=== PATIENT | female | born 1950 | race Caucasian/White ===

== ENCOUNTER 2024-08-15 09:33 | Observation (INO) ==
--- NOTE | 2024-07-18 13:57 | PAT Medication Instructions ---
Medication Instructions Date of Service July 18, 2024 Home Medications Medication Instructions Recorded Richy Crandall #1 ea 06/12/24 Vitamin D3 1 gummy PO QAM alprazolam 0.5 mg tablet 0.5 mg PO HS citalopram 40 mg tablet 40 mg PO HS cyanocobalamin (vitamin B-12) 1 tab PO QAM denosumab 60 mg/mL subcutaneous syringe (Prolia) 60 mg subcut UD ergocalciferol (vitamin D2) 1,250 mcg (50,000 unit) capsule (Vitamin D2) 1,250 mcg PO UD multivitamin 2 tab PO QAM ASK your prescriber and surgeon denosumab 60 mg/mL subcutaneous syringe (Prolia) 60 mg subcut UD DO NOT take the morning of surgery Vitamin D3 1 gummy PO QAM cyanocobalamin (vitamin B-12) 1 tab PO QAM ergocalciferol (vitamin D2) 1,250 mcg (50,000 unit) capsule (Vitamin D2) 1,250 mcg PO UD multivitamin 2 tab PO QAM Take evening before surgery alprazolam 0.5 mg tablet 0.5 mg PO HS citalopram 40 mg tablet 40 mg PO HS MORNING OF SURGERY: NOTHING TO EAT OR DRINK AFTER MIDNIGHT Other Notes If you have any questions please call us at [phone] or [phone] or [phone] or [phone]
--- NOTE | 2024-07-24 08:15 | Anesthesiology Consultation ---
Date of Service July 24, 2024 Assessment & Plan (1) Encounter for pre-operative examination: - Infectious disease screening: Per assessment on 07/24/24- No known recent infectious disease contacts or current infectious disease symptoms. - Outpatient joint assessment: Pt currently scheduled for inpatient pathway. If surgeon requests review for outpatient joint pathway, patient is an acceptable candidate for outpatient joint program from anesthesia standpoint pending surgeon's office assessment that patient is motivated, has good support and completes [facility] preop requirements. - Hx PONV: Anxious regarding waking up with PONV. Requesting "not to wake up with nausea" Chart Review Chart Review: Acceptable Risk for Surgery and Patient seen in Pre Admission Testing Teaching & Discussion Pre-Anesthesia Teaching/Discussion Notes: Instructed NPO after midnight before surgery,except medications with 15 cc of water. Medication instructions provided according to the PAT guidelines. History Surgery Operation Date: 08/15/24 10:40 Proposed Procedures p Right Total Knee Arthroplasty - Ruiz Helton MD Height/Weight Height: 5 ft Weight: 66.2 kg Allergies Allergy/AdvReac Type Severity Reaction Status Date / Time No Known Allergies Allergy Verified 07/11/24 07:33 Medications Home Medications Medication Instructions Recorded Confirmed Last Taken Wheeled Walker #1 ea 06/12/24 06/12/24 Unknown Vitamin D3 1 gummy PO QAM 07/11/24 07/11/24 Unknown alprazolam 0.5 mg tablet 0.5 mg PO HS 07/11/24 07/11/24 Unknown citalopram 40 mg tablet 40 mg PO HS 07/11/24 07/11/24 Unknown cyanocobalamin (vitamin B-12) 1 tab PO QA 07/11/24 07/11/24 Unknown denosumab 60 mg/mL subcutaneous 60 mg subcut UD 07/11/24 07/11/24 Unknown syringe (Prolia) ergocalciferol (vitamin D2) 1,250 1,250 mcg PO UD 07/11/24 07/11/24 Unknown mcg (50,000 unit) capsule (Vitamin D2) multivitamin 2 tab PO QAM 07/11/24 07/11/24 Unknown Past Medical History Medical History Anxiety Right knee DJD Exercise / Class Metabolic Activity II 4-5 Yardwork/Stairs/Walk up hill (one FS: No CP, no SOB) Past Surgical History Surgical History History of total left knee replacement Hx of colonoscopy ~ Hx of total hysterectomy with removal of both tubes and ovaries Nausea and vomiting after administration of anesthetic agent Past Anesthesia History No Hx of Anesthesia Complications and No Family Hx of Anesthesia Complications History of PONV No Hx of Motion Sickness and History of PONV Social History Smoking Status: Never smoker Do You Dip or Chew Tobacco: No Hx Alcohol Use: Yes alcohol intake frequency: holidays/special occasions only Hx Substance Use: No substance use type: does not use Review of Systems Patient denies chest pain, shortness of breath, dyspnea on exertion, fever, chills, cough, wheezing, palpitations. Physical Exam Vital Signs BP 118/76 P 73 TEMP 98.2 SP02 96%RA RESP 16 Physical Mildly decreased cervical extension range of motion. Full TMJ range of motion. TMD > 3.5 finger breaths Mallampati Score II Dentition: upper partials Lungs: clear throughout to auscultation Cardiac: regular rate and rhythm, no murmurs noted Spine: normal Carotid arteries: negative bruit Extremities: no LE edema Short neck Lab Results Anesthesia Preop Results Results Anesthesia Widget: WBC 6.60 K/ul (4.8-10.8) 07/24/24 Hgb 13.6 g/dl (12.0-16.0) 07/24/24 Hct 40.7 % (37.0-47.0) 07/24/24 Plt 333 K/uL (130-400) 07/24/24 Na 139 mmol/L (136-145) 07/24/24 K 3.9 mmol/L (3.5-5.1) 07/24/24 Cl 106 mmol/L (98-107) 07/24/24 CO2 27 mmol/L (21-32) 07/24/24 BUN 16 mg/dl (6-23) 07/24/24 Creat 0.78 mg/dl (0.6-1.2) 07/24/24 Glucose Level 76 mg/dl (70-99(Fasting)) 07/24/24 PT 10.7 Seconds (9.0-12.0) 07/24/24 PTT 26 Seconds (21-31) 07/24/24 INR 1.0 (0.9-1.1) 07/24/24 Blood Type A Positive 07/24/24 Antibody Screen NEGATIVE 07/24/24 Testing Electrocardiogram Date: 07/24/24 NSR at 70bpm. "Normal ECG" Chest X-Ray Date: 07/24/24 FINDINGS: 2 views of the chest demonstrate no acute cardiopulmonary process. No infiltrate or pleural effusion. The heart and pulmonary vascularity are unremarkable IMPRESSION: No acute process
--- NOTE | 2024-08-11 07:35 | History & Physical Report ---
Date of Service August 11, 2024 Assessment & Plan (1) Right knee DJD: 74-year-old female with history of left knee replacement done elsewhere in the past with advanced right knee DJD. She has failed conservative treatment. She like to proceed with right knee replacement. Plan: We are going to take her to the operating room and do a right total knee replacement. The risks Mente this procedure explained and she understands. Informed consent was obtained. She is planned to be discharged to home with [facility]. Will plan on DVT prophylaxis including thigh-high teds, SCDs, aspirin twice a day. She has had issues with nausea in the past and will be aggressive as far as trying to manage her nausea with Zofran and Decadron. (2) History of total left knee replacement: History of Present Illness Chief Complaint: . Right knee pain. Primary Care Provider: NO PCP . Patient is a 74-year-old female from [place] who presents [facility] for surgical treatment of her right knee. She has a long history of knee problems had her left knee replaced in [place] at [facility] about 6 or 7 years ago. She done pretty well from this. Over the past several years she developed increased pain discomfort and limited mobility due to right knee pain. It is global pain. The more she is up and on her leg and more it hurts. She limps all the time but more as the day goes on. She has had little response to her medicines. She has not done well with injections in the past. She just like to get her knee fixed. Allergies Allergy/AdvReac Type Severity Reaction Status Date / Time No Known Allergies Allergy Verified 07/11/24 07:33 Home Medications Medication Instructions Recorded Confirmed Type Wheeled Walker #1 ea 06/12/24 06/12/24 Rx Vitamin D3 1 gummy PO QAM 07/11/24 07/11/24 History alprazolam 0.5 mg tablet 0.5 mg PO HS 07/11/24 07/11/24 History citalopram 40 mg tablet 40 mg PO HS 07/11/24 07/11/24 History cyanocobalamin (vitamin B-12) 1 tab PO QAM 07/11/24 07/11/24 History denosumab 60 mg/mL subcutaneous 60 mg subcut UD 01/14/25 01/14/25 History syringe (Prolia) ergocalciferol (vitamin D2) 1,250 1,250 mcg PO UD 07/11/24 07/11/24 History mcg (50,000 unit) capsule (Vitamin D2) multivitamin 2 tab PO QAM 07/11/24 07/11/24 History Past Med/Surg History Problem List Encounter for pre-operative examination Medical History Anxiety Right knee DJD Surgical History Nausea and vomiting after administration of anesthetic agent History of total left knee replacement Hx of colonoscopy ~ Hx of total hysterectomy with removal of both tubes and ovaries Social History Smoking Status: Never smoker Second Hand Exposure: No; Do You Dip or Chew Tobacco: No; Hx Alcohol Use: Yes Hx Substance Use: No Preferred Language: Czech Communication Ability: Effective 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 Physical Exam . Physical examination was a pleasant healthy female. Examination of both [id number] patient ambulates independently. Examination of the right knee reveals a varus alignment to her knee. She is tender with medial joint line. When she weightbears she does have a bit of a varus thrust. She is neurologically intact. Range of motion is about 5-1 20. Examination of the left knee reveals well-healed incision. No skin swelling. No instability. Range of motion 0-1 20. She is neurologically intact. Constitutional WD/WN, vitals as above Respiratory normal respiratory effort, lungs clear to auscultation Cardiovascular RRR, no murmur, no edema Gastrointestinal (Abdomen) normal bowel sounds, soft, nontender, no hepatosplenomegaly Results & Data Results & Data Laboratory Results . Diagnostic Findings . X-ray of the right knee reviewed. Shows advanced right knee DJD. She has complete loss of medial joint space. There is got some bone destruction medially of the tibia. A little bit of tibiofemoral subluxation. The left knee replacement looks to be in good position without problems. PG Care Time/CCT Total # of Minutes Spent Total Time Spent with Patient: Total time spent is greater than 50% in coordination of care (as documented) at patient's floor/unit and/or counseling patient: Coding Level of Care Code None Diagnoses Right knee DJD M17.11 History of total left knee replacement Z96.652
[~2024-08-15 09:33] MED LIST: ROPIVACAINE 0.5% 5 MG/ML 30 ML VIAL ONE
[2024-08-15] MEDS: CeleBREX 200 MG CAP PO SCH (10:10)
[2024-08-15] MEDS: FAMOTIDINE 20 MG TAB PO SCH (10:10)
[2024-08-15] MEDS: dexAMETHasone**PF** 10 MG/ML VIAL IV SCH (10:10)
[2024-08-15] MEDS: LR 60ML/HR IV SCH (10:10)
[2024-08-15] MEDS: METOCLOPRAMIDE HCL 10 MG TABLET PO SCH (10:10)
[2024-08-15] MEDS: ACETAMINOPHEN 500 MG TAB PO SCH ×2 (10:10→21:07)
[2024-08-15] MEDS: LR 500ML BOLUS, THEN 15ML/HR IV SCH (10:25)
--- NOTE | 2024-08-15 11:05 | History & Physical Bridge Note ---
Date of Service August 15, 2024 History & Physical Bridge Note I have examined the patient, reviewed the History & Physical and in the interval since the performance of the History & Physical I have noted the following changes of clinical significance: no changes noted
[2024-08-15] MEDS ORDERED: fentaNYL citrate PF 100 MCG/2 ML VIAL IV PRN (12:23)
[2024-08-15] MEDS ORDERED: ATROPINE SULFATE 0.1 MG/ML 10ML SYR IV PRN (12:23)
[2024-08-15] MEDS ORDERED: ONDANSETRON INJ 2 MG/ML 2 ML VIAL IV PRN ×2 (12:23→16:04)
[2024-08-15] MEDS ORDERED: HYDROmorphone INJ 1 MG/ML SYRINGE IV PRN (12:23)
[2024-08-15] MEDS ORDERED: ePHEDrine sulfate 50 MG/ML AMP IV PRN (12:23)
[2024-08-15] MEDS ORDERED: PROPOFOL IV EMULSION 10 MG/ML 20 ML VIAL IV ONE ×2 (12:36→12:37)
[2024-08-15] MEDS ORDERED: LIDOCAINE 2% 2 ML VIAL/AMP(20MG/ML) INFIL ONE (12:38)
[2024-08-15] MEDS ORDERED: GLYCOPYRROLATE 0.2 MG/ML VIAL ONE (12:38)
[2024-08-15] MEDS ORDERED: ONDANSETRON INJ 2 MG/ML 2 ML VIAL ONE (12:38)
[2024-08-15] MEDS ORDERED: MIDAZOLAM HCL 1 MG/ML 2ML VIAL ONE (12:40)
[2024-08-15] MEDS: ceFAZolin 2000MG 2,000 MG/15 ML SYR IV SCH (13:05)
[2024-08-15] MEDS: ROPIV 0.5% 246mg, Ketorolac 30mg, EPINEPHrine 0.5mg in NSS INFIL SCH (13:44)
[2024-08-15] MEDS: ORTHO JOINT ANESTHETIC ONE (13:45)
[2024-08-15] MEDS: TRANEXAMIC ACID 1,000 MG **IV Intra-op IV SCH (13:53)
--- NOTE | 2024-08-15 14:53 | Operative Report ---
PG Post Operative Report Pre & Post Diagnosis Operation Date: 08/15/24 12:30 Pre-Op Diagnosis: Right Knee Osteoarthritis Post-Op Diagnosis: Right Knee Osteoarthritis I identified the patient and participated in the time-out.: Yes Procedure Operation Date: 08/15/24 12:30 Actual Procedures p Right Total Knee Arthroplasty, Cemented(Right) - Ruiz Helton MD Surgeon Ruiz Helton MD Sales Representative [employer] Dakota Ireland PA-C Estimated Blood Loss 50 Findings Consistent with Post-Op Diagnosis Operative findings were advanced severe right knee DJD with grade 4 disease primarily in the medial and patellofemoral compartments. Diffuse osteopenia. Osteophytes in all 3 compartments. Specimens Right knee sent for pathology. Anesthesia Type Spinal MAC Complications none Disposition Accompanied Patient To Recovery: No Indications Patient is a 74-year-old female with a long several history of progressive increasing right knee pain discomfort and stiffness. She had her left knee replaced about 8 years ago and is done well from this. That she failed conservative measures. X-rays show advanced right knee DJD. She elected proceed with total knee arthroplasty. Description of Procedure Operative implants consist of: 1. Biomet Vanguard size 57.5 right posterior Byce femoral component. 2. Biomet size 63 tibial tray. 3. 10 mm posterior stabilized polyethylene insert. 4. 31 x 8 all poly patella. The patient was taken to the op room, identified, placed on the operating table in the supine position. All conductors were appropriately padded. IV antibiotics fibra anesthesia team. A spinal anesthetic and adductor canal block had been Weida in the holding area. Alves catheter was placed in sterile fashion. Right Tetrick was then placed. The right lower extremity was then prepped and draped in usual sterile fashion. The right leg was elevated and exsanguinated with use of an Esmarch and a turn was placed at 300 mmHg. An anterior approach to the right knee was then performed to longitudinal incision centered over the patella. Sharp dissection was got through subcutaneous tissue down the extensor mechanism. A medial parapatellar arthrotomy incision was made. Some subperiosteal dissection was carried out medially. The fat pad was dissected from Neath patella tendon. The lateral patellofemoral ligament was released. Patella subluxate laterally and the knee was flexed. The osteophytes taken off distal femur. The ACL and PCL were then released from distal femur and the tibia subluxated anteriorly. The external tibial alignment jig was then placed on the anterior face the tibia and adjusted 12 mm medially. The proximal tibial cut was made remove out of millimeter bone for the most efficient aspect medial tibial plateau. The tibia sized to a size 63. Attention drawn the femur. Distal femur then with a sharp drill. Intramedullary canal was suction. A right 5 degree valgus cutting guide was placed. The distal femoral cutting block was pinned in place. Distal femoral cut was made to take an additional 3 mm of bone off distal femur. The femur was then sized to a size 57.5. The AP cutting block was pinned parallel to the epicondylar axis which was 3 degrees of external rotation. The anterior cut, anterior chamfer, posterior cut, posterior chamfer cuts were made. The box cutting guide was placed and just slight later al box cut was made. The knee was flexed. The remnants of the medial and lateral menisci were excised. The osteophytes taken off the posterior aspect the femur. A trial femoral component was placed. Tibial tray was pinned in Aniyah external rotation and the drill and stem punch use great defect in proximal tibia for the tibial tray. The knee was then trialed and the 10 mm insert fit most appropriately. Attention drawn the patella. The patella was cleaned of all soft tissues. Patella thickness measured about 19 mm in thickness was cut down to 12. Was sized to a size 31 patella. The lug holes were drilled for 31 patella. The lateral osteophytes removed. Patella button was placed. Knee was taken through range of motion patella tracked nicely with no thumbs test. Attention drawn toward placement permanent components. Nupathe all trial components were removed. Bone plug was placed into this femur limit blood loss. Double batch Palacos G cement was mixed. A Biomet Vanguard size 57.5 right posterior stabilized femoral component, size 63 tibial tray, 10 mm posterior Byce polyethylene insert, and a 31 x 8 all poly patella were then placed and cemented into place. The knee was brought out into full extension until the cement hardened. Final cement check was then performed. The pericapsular tissues were injected with a total of 100 cc of Ortho mix. Patient did receive 1 g of tranexamic acid. The tourniquet was then let down for final tourniquet time of 53 minutes. Hemostasis surgeries electrocautery. Extensor Meclomen closed with combination 1 PDS suture #1 V icryl suture in a [id number] fashion. Extensor Meclomen checked found be intact with subcutaneous tissue then closed with 2 Dexon suture in buried erupted fashion and the skin was closed skin johnathon. Leg was then cleaned and dried and sterile dressing with Xeroform, 4 fours, sterile cast padding, Apolinar bandage were applied. Patient then transferred to the recovery room in stable condition. Patient tolerated procedure well and there were no complications. Dakota Ireland, my physician reading assistant, was present for the entire procedure. His assistance was essential and required for appropriate patient positioning, prepping and draping, surgical exposure, performing the technical details of the operation, placement the implants, closure of the wound, and placement of the sterile bandage. I attest to the content of the Intraoperative Record and any orders documented therein. Any exceptions are noted below.
--- NOTE | 2024-08-15 15:18 | Anesthesiology Progress Note ---
Date of Service August 15, 2024 Anesthesia Post Procedure Vital Signs Vital Signs: Temp Pulse Pulse Resp BP Pulse Ox O2 Del Method 08/15/24 15:15 36.4 C L 99 H 16 114/68 95 Room Air 08/15/24 15:05 103 H 14 123/61 95 Room Air 08/15/24 14:55 105 H 16 110/65 95 Room Air 08/15/24 14:49 36.5 C 104 H 16 124/63 95 Room Air 08/15/24 10:03 36.5 C 69 18 144/79 H 95 Room Air Pain Intensity Right Knee: Pain Intensity: 7 Transfer of Care Handoff Completed per policy Notes Mental Status: alert / awake / arousable and participated in evaluation Patient Amnestic to Procedure: Yes Nausea / Vomiting: adequately controlled Pain: adequately controlled Airway Patency, RR, SpO2: stable & adequate BP & HR: stable & adequate Hydration State: stable & adequate Anesthetic Complications: no major complications apparent and Pt Satisfied with anesthetic care
--- NOTE | 2024-08-15 15:48 | XRay Report ---
XR knee RT 1 or 2V routine CLINICAL HISTORY: Surgical Post Op COMPARISON: None pertinent FINDINGS: 3 postop views of the right knee demonstrate a total knee replacement with satisfactory po sitioning and alignment of the prosthetic components. Postsurgical changes are noted. IMPRESSION: As above ACT 112: Negative or not required by law. Electronically signed by: Yvette Montoya M.D. 08/15/2024 3:47 PM
[2024-08-15] MEDS ORDERED: ALUMINUM/MAGNESIUM SUSP 30 ML UDC PO PRN (16:04)
[2024-08-15] MEDS ORDERED: bisacodyL 10 MG SUPP PR PRN (16:04)
[2024-08-15] MEDS ORDERED: MAGNESIUM HYDROXIDE SUSP 30 ML UDC PO PRN (16:04)
[2024-08-15] MEDS ORDERED: NALOXONE HCL 0.4 MG/1 ML VIAL/CARP IV PRN (16:04)
[2024-08-15] MEDS ORDERED: NON-FORMULARY MEDICATION (Denosumab [Prolia] 60 mg/mL Syringe) SQ SCH (16:04)
[2024-08-15] MEDS ORDERED: traMADol HCL 50 MG TABLET PO PRN (16:04)
[2024-08-15] MEDS ORDERED: METOCLOPRAMIDE HCL INJ 5 MG/ML 2 ML VIAL IV PRN (16:04)
[2024-08-15] MEDS: KETOROLAC TROMETHAMINE 15 MG/ML VIAL IV SCH (18:40)
[2024-08-15] MEDS: ASCORBIC ACID 500 MG TAB PO SCH (18:53)
[2024-08-15] MEDS ORDERED: SENNA 8.6 MG TAB PO SCH (21:00)
[2024-08-15] MEDS: CITALOPRAM 40 MG TAB PO SCH (21:07)
[2024-08-15] MEDS: ALPRAZolam 0.5 MG TABLET PO SCH (21:07)
[2024-08-15] MEDS: DOCUSATE SODIUM 100 MG CAP PO SCH (21:07)
[2024-08-15] MEDS: ASPIRIN 81 MG ECTAB PO SCH (21:07)
[2024-08-15] MEDS: SENNA 8.6 MG TAB PO SCH (21:07)
[2024-08-15] MEDS: ceFAZolin 1000MG 1,000 MG/7.5 ML SYR IV SCH (21:59)
[2024-08-15] MEDS: TRANEXAMIC ACID / 0.7% NACL 1,000 MG/100 ML BAG IV SCH (21:59)
[2024-08-16] MEDS: HYDROmorphone INJ 0.5 MG/0.5 ML SYR IV PRN (01:49)
[2024-08-16 07:09] VITALS: RESP 18; TEMP 98.2; O2SAT 96
[2024-08-16 07:52] LABS: Hematocrit (blood only) 34.4 % (37.0-47.0); Hemoglobin 11.4 g/dl (12.0-16.0); Mean Corpuscular Hemoglobin 29.8 pg (25.0-34.0); Mean Corpuscular Hgb Conc 33.1 g/dL (32.0-36.0); Mean Corpuscular Volume 90.1 fL (80.0-100.0); Mean Platelet Volume 10.4 fL (9.4-12.4); Platelet Count 295 K/uL (130-400); RDW Coefficient of Variation 13.8 % (11.5-14.5); RDW Standard Deviation 45.4 fL (36.4-46.3); Red Blood Count 3.82 M/uL (4.20-5.40); White Blood Count 17.21 K/ul (4.8-10.8)
[2024-08-16 08:12] LABS: BUN Creatinine Ratio 20.2 (10-20); Calcium 8.9 mg/dl (8.6-10.3); Creatinine Clr Calc Pharmacy 44.2 ml/min; Potassium 4.4 mmol/L (3.5-5.1)
[2024-08-16] MEDS: MULTIVITAMIN TAB PO SCH (08:19)
[2024-08-16] MEDS: CYANOCOBALAMIN (B-12) 500 MCG TABLET PO SCH (08:19)
[2024-08-16] MEDS: CHOLECALCIFEROL 10 MCG (400 UNITS) TAB PO SCH (08:19)
[2024-08-16] MEDS: dexAMETHasone 10 MG in SYRINGE 0 ML IV SCH (08:20)
[2024-08-16] MEDS ORDERED: NON-FORMULARY MEDICATION (Multivitamin Tablet) PO SCH (09:00)
[2024-08-16 10:45] VITALS: BP 104/66; PULSE 83
[2024-08-16] MEDS ORDERED: MIDAZOLAM HCL 1 MG/ML 2ML VIAL IV ONE (11:02)
--- NOTE | 2024-08-16 12:58 | Orthopedic Progress Note ---
Date of Service August 16, 2024 Assessment & Plan (1) Status post total right knee replacement: (2) Aftercare following knee joint replacement surgery: Plan 74-year-old woman POD# 1 s/p right total knee replacement, doing well overall. Pain is well-controlled. Medically stable. Postop x-rays well-appearing. She is neurologically intact. Plan: 1. DVT prophylaxis w/ TEDs, SCDs, ASA 81 mg BID. 2. PT/OT as tolerated. WBAT on the R LE. Encourage heel slides, SLR, full knee extension w/ quad sets. 3. Pain control doing well with current pain regimen. 4. Dressing change POD#2 per discharge instructions. 5. Disposition - plan to D/C home w/ home health later today once cleared by PT/OT. 6. F/u 2 weeks post-op w/ orthopedics (Dr. Helton's team), or as previously scheduled, for first post-op visit. Subjective Patient is POD# 1 s/p right total knee arthroplasty by Dr. Helton on 08/15/2024. Patient says her pain is well-controlled this morning. Denies CP, SOB, N/V, R LE paresthesia. She has home health care arranged to come to the house for therapy. Patient says that she will be ready to go home today. Review of Systems All systems reviewed & are unremarkable except as noted in HPI & below. Physical Exam GENERAL: AA&Ox3, NAD. Pleasant, affect is calm. Sitting in bed and appears comfortable. RESPIRATORY: Normal respiratory effort with no signs of distress. CHEST/AXILLA: Chest movement symmetrical. No deformities noted. CARDIOVASCULAR: No edema noted. SKIN: [place], warm and dry. MS/EXTREMITY: Knee dressing & EMMA wrap c/d/i. KILEY hose donned to contralateral LE. + ankle dorsi/plantarflexion. NVI distally. Calf soft/NT. PT/DP pulses intact, 2+. Results & Data Results & Data Laboratory Results . Laboratory Results - last 24 hr 08/16/24 07:29 WBC 17.21 H RBC 3.82 L Hgb 11.4 L Hct 34.4 L MCV 90.1 MCH 29.8 MCHC 33.1 RDW Std Deviation 45.4 RDW Coeff of Sammi 13.8 Plt Count 295 MPV 10.4 Sodium 137 Potassium 4.4 Chloride 104 Carbon Dioxide 29 Anion Gap 4 BUN 19 Creatinine 0.94 Est Cr Clr Drug Dosing 44.2 eGFR 63.67 BUN/Creatinine Ratio 20.2 H Glucose 103 H Calcium 8.9 Diagnostic Findings . Knee X-Ray 08/15/24 14:47 XR knee RT 1 or 2V routine CLINICAL HISTORY: Surgical Post Op COMPARISON: None pertinent FINDINGS: 3 postop views of the right knee demonstrate a total knee replacement with satisfactory positioning and alignment of the prosthetic components. Postsurgical changes are noted. IMPRESSION: As above ACT 112: Negative or not required by law. Electronically signed by: Yvette Montoya M.D. 08/15/2024 3:47 PM PG Care Time/CCT Total # of Minutes Spent Total Time Spent with Patient: Total time spent is greater than 50% in coordination of care (as documented) at patient's floor/unit and/or counseling patient: [place] [address] SUB INP/OBS CARE 07/22MIN Patient Type Established History Problem Focused Exam Problem Focused Medical Decision Making Straight Forward Diagnoses Status post total right knee replacement Z96.651 Aftercare following knee joint replacement surgery Z47.1; Z96.659
--- NOTE | 2024-08-16 15:20 | Discharge Summary ---
Date of Service August 16, 2024 Admission HPI (Per Admitting) . Patient is a 74-year-old female from [place] who presents specifically for surgical treatment of her right knee. She has a long history of knee problems had her left knee replaced in [place] at [facility] about 6 or 7 years ago. She done pretty well from this. Over the past several years she developed increased pain discomfort and limited mobility due to right knee pain. It is global pain. The more she is up and on her leg and more it hurts. She limps all the time but more as the day goes on. She has had little response to her medicines. She has not done well with injections in the past. She just like to get her knee fixed. Admission Exam (Per Admitting) . Physical examination was a pleasant healthy female. Examination of both [id number] patient ambulates independently. Examination of the right knee reveals a varus alignment to her knee. She is tender with medial joint line. When she weightbears she does have a bit of a varus thrust. She is neurologically intact. Range of motion is about 5-1 20. Examination of the left knee reveals well-healed incision. No skin swelling. No instability. Range of motion 0-1 20. She is neurologically intact. Constitutional WD/WN, vitals as above Respiratory normal respiratory effort, lungs clear to auscultation Cardiovascular RRR, no murmur, no edema Gastrointestinal (Abdomen) normal bowel sounds, soft, nontender, no hepatosplenomegaly Diagnostic Findings . X-ray of the right knee reviewed. Shows advanced right knee DJD. She has complete loss of medial joint space. There is got some bone destruction medially of the tibia. A little bit of tibiofemoral subluxation. The left knee replacement looks to be in good position without problems. Principal Diagnosis Same as "Discharge Diagnosis" noted below under Discharge Instructions. Discharge Exam GENERAL: AA&Ox3, NAD. Pleasant, affect is calm. Sitting in bed and appears comfortable. RESPIRATORY: Normal respiratory effort with no signs of distress. CHEST/AXILLA: Chest movement symmetrical. No deformities noted. CARDIOVASCULAR: No edema noted. SKIN: [place], warm and dry. MS/EXTREMITY: Knee dressing & EMMA wrap c/d/i. KILEY hose donned to contralateral LE. + ankle dorsi/plantarflexion. NVI distally. Calf soft/NT. PT/DP pulses intact, 2+. Discharge Data Procedures Performed Operation Date: 08/15/24 12:30 Actual Procedures p Right Total Knee Arthroplasty, Cemented(Right) - Ruiz Helton MD Ordered Studies 08/15/24 05:00 US - OR guided needle placemen Routine Hospital Course (1) Aftercare following knee joint replacement surgery: (2) Status post total right knee replacement: Plan On August 15, 2024 Yessenia arrived at [facility] operating room and underwent a right total knee replacement without complications. Patient had a an adductor canal block and spinal anesthetic for the procedure. Postoperatively, patient was transferred to the general orthopedic floor in stable condition and eventually started onto aspirin 81 mg twice daily for DVT prophylaxis as appropriate. Patient's hospital course was uneventful. On postoperative day #1, patient's vital signs were stable and pain was well- controlled. Patient was able to participate well with physical therapy, safely performing the necessary ambulation and range of motion exercises and properly demonstrating ADL tasks. Patient was then discharged home in stable condition, with home health care ([facility]) services to begin. Patient will follow-up with orthopedics in 2 to 3 weeks for postoperative care. PG Care Time/CCT Total # of Minutes Spent Total Time Spent with Patient: Total time spent is greater than 50% in coordination of care (as documented) at patient's floor/unit and/or counseling patient: Discharge Plan Discharge Items Patient Disposition: Home - Home Health Services Reason For Visit: Right Knee Osteoarthritis Discharge Diagnosis: Right Knee Replacement Activity: Per Instructions section Weightbearing: Full weightbearing Non-emergency contact: Surgeon Call non-emergency contact if: you have any medication questions Follow-up/Referrals: PCP,NO [Primary Care Provider] - Addtl Attending Provider Instructions: ACTIVITY RECOMMENDATIONS: Diet: * You may resume previous diet. Physical Therapy: * You will go to physical therapy three times each week for four to six weeks after your surgery in order to regain your knee range of motion and to retrain your knee to work properly. * It is just as important to make sure you are getting your knee perfectly straight as it is to regain your knee bend. * Taking a pain pill an hour before therapy can help you have a more productive and comfortable therapy session. Home Exercise: * You were shown a series of exercises (heel props, heel slides, etc.) in the hospital. Do these exercises three to four times each day including the exercises you were shown in physical therapy. Walking: * Get up and walk several times each day. For the first four weeks, try not to stand or walk for more than one hour at a time. If you do stand or walk for more than one hour, you will not hurt anything, but your knee and leg will likely swell. * As you feel comfortable, you may change from the walker or crutches to a cane and then to independent walking. MEDICATIONS: New Medicine: * You will likely be taking one or more of these medications: 1. Tramadol - A quick and shorter-acting pain medication. Take one to two tablets every six hours to lessen your pain. 2. Aspirin - Thins your blood to lessen the chance of forming a blood clot. * The most common side effects of pain medicine and iron are nausea and constipation. If nausea or constipation is too much of a problem or if you have any questions about your new medicines or doses, call [facility] at . We will try to help you manage these issues. "VERY IMPORTANT TO READ AND REVIEW" Pain: * The immediate post-operative period after knee replacement surgery is often quite painful. * You are given a prescription for pain medicine. You should take it, as directed, when you need it, especially before physical therapy and before going to bed. Pain that interferes with sleep is very common and can last several months. * You will likely need pain medicine for the first four to six weeks. It will not stop all of the pain. The pain will lessen and as you feel better, you may change to milder pain medicine such as Tylenol. * The most common side effects of pain medicine are nausea and constipation, so don't take more than you need. SPECIAL CARE INSTRUCTIONS: TEDs/Elastic Stockings: * The white elastic stockings help limit swelling and prevent blood clots from forming in your legs. The more you wear them, the more they work. * Wear them for six weeks after knee replacement surgery and four weeks after partial knee replacement. Incision Site Care: * Remove dressing postoperative day 2 and then shower. Keep direct shower pressure off the incision site. * After showering, cover johnathon with dry gauze and change daily or more frequently if the dressing is getting saturated with drainage. * Use the KILEY stockings to hold dressing in place. DO NOT apply tape on the skin. * May completely stop using bandage if wound is dry and no drainage * Johnathon are removed between 2 and 3 weeks post-op. If your follow-up appointment is made before 2 weeks, please have your appointment re- scheduled. It is too early to remove the johnathon. Prevention of Infection: * Take antibiotics one hour before any dental cleaning, dental work, urological procedure, gastrointestinal procedure or any invasive surgery in order to prevent your new joint from getting infected. * You may get the antibiotics from the doctor performing the procedure or you may call our office at [phone] before and we will call in a prescription to the pharmacy of your choice. Things to Watch For: * Drainage from the incision site that occurs more than one week after your surgery. * Severely increased knee/leg pain or swelling. * Increased redness at the incision site. * Fever above 102 degrees Fahrenheit. * Unusual chest pain or shortness of breath. * Unusual pain or burning with urination. Call [facility] at [phone] with any of the above problems or if you have any questions about your medicines or recovery. FOLLOW UP VISIT: Make an appointment to see your doctor for approximately two weeks after surgery for a progress check and staple removal by calling the office at [phone]. Pending Studies at Discharge: No Stand-Alone Forms: My [facility], Smoking Cessation Medications and DC Order Prescriptions: Continued tramadol 50 mg tablet 50 - 100 mg PO Q6 PRN (Reason: pain) Qty: 40 0RF Rx Instructions: Take as needed for pain ondansetron 4 mg tablet,disintegrating 4 mg PO Q8 PRN (Reason: nausea) Qty: 20 1RF Rx Instructions: Take as needed for nausea ketorolac 10 mg tablet 10 mg PO Q6 5 Days Qty: 20 0RF Rx Instructions: Take 4 times per day with food for 5 days to lessen pain and swelling. sennosides [Senokot] 8.6 mg tablet 8.6 mg PO BID 14 Days Qty: 28 0RF Rx Instructions: Take two times a day to prevent/treat constipation acetaminophen [Tylenol Extra Strength] 500 mg tablet 1,000 mg PO TID 30 Days Qty: 180 0RF Rx Instructions: Take 3 times per day to lessen pain. aspirin [Ирина Low Dose Aspirin] 81 mg tablet,delayed release (DR/EC) 81 mg PO BID 45 Days Qty: 90 0RF Rx Instructions: Take to prevent blood clots. cefadroxil 500 mg capsule 500 mg PO BID 7 Days Qty: 14 0RF Rx Instructions: Take 1 cap twice a day to prevent infection (DME) Wheeled Walker Misc See Rx Instructions .MEDSUPPLY Qty: 1 0RF Rx Instructions: As directed multivitamin Tablet 2 tab PO QAM citalopram 40 mg tablet 40 mg PO HS alprazolam 0.5 mg tablet 0.5 mg PO HS ergocalciferol (vitamin D2) [Vitamin D2] 1,250 mcg (50,000 unit) Capsule 1,250 mcg PO UD Rx Instructions: every other week cyanocobalamin (vitamin B-12) Tablet,Chewable 1 tab PO QAM Prolia 60 mg/mL Syringe 60 mg SUBCUT UD Rx Instructions: twice per year Vitamin D3 1 gummy PO QAM Admission Data Admit Date/Time: 08/15/24 14:47 Attending Provider: Ruiz Helton Admit Provider: Ruiz Helton Primary Care Provider: PCP,NO Other Interventions: Discharge Summary Assessment (RN) Last Done: 08/16/24 10:43
[2024-08-21] MEDS ORDERED: ERGOCALCIFEROL 1250 MCG (50,000 UNITS) CAP PO SCH (09:00)
== END 2024-08-16 11:03 | disposition home health service (06) ==
LOC: ASU 09:33 → 3W 09:33